=== PATIENT | male | born 1980 | race Caucasian/White ===

== ENCOUNTER 2017-06-05 14:08 | Emergency (ER) | payer OTHER ==
[~2017-06-05] VITALS: Ht 198.1 cm; Wt 113.6 kg
[2017-06-05] MEDS ORDERED: VYVANSE70 M1 PO (14:22)
[2017-06-05] MEDS ORDERED: HYDROXYZINE HCL50 M1 PO (14:22)
[2017-06-05] MEDS ORDERED: NORCO 5-325 TA1 EACH PO (16:29)
== END 2017-06-05 17:04 ==
LOC: EDMED 14:08
PROC: 0HQFXZZ Repair Right Hand Skin, External Approach (ICD-10-PCS; principal; 2017-06-05)
DX: S61.011A Laceration without foreign body of right thumb without damage to nail, initial encounter (principal); F17.210 Nicotine dependence, cigarettes, uncomplicated; Z23 Encounter for immunization; W45.8XXA Other foreign body or object entering through skin, initial encounter; Y92.69 Other specified industrial and construction area as the place of occurrence of the external cause; Y99.0 Civilian activity done for income or pay